=== PATIENT | male | born 1990 | race Caucasian/White ===

== ENCOUNTER 2021-04-06 19:35 | Emergency (ER) | payer OTHER, SELFPAY ==
[2021-04-06 19:47] VITALS: BP 109/63; PULSE 99; RESP 22; TEMP 38.4; O2SAT 96
[2021-04-06 19:52] VITALS: BP 109/63; PULSE 99; RESP 22; TEMP 38.4; O2SAT 96
[2021-04-06 21:02] VITALS: PULSE 95; RESP 24; O2SAT 100
--- NOTE | 2021-04-06 21:02 | PC.NURSE ---
Pt up to intake states he cannot breathe and is hyperventilating. Vitals checked and stable - 100% on room air. Pulse 95.
[2021-04-06 21:36] VITALS: BP 110/70; PULSE 80; RESP 20; O2SAT 99
[2021-04-06 21:46] LABS: Hematocrit 46.4 % (42.0-52.0); Mean Corpuscular HGB Conc 34.5 g/dl (32-36); Mean Corpuscular Hemoglobin 29.5 pg (26-34); Mean Corpuscular Volume 85.6 fl (80-100); Mean Platelet Volume 10.8 fl (7.4-10.4); Platelet Count Result 194 k/mm3 (150-375); Red Blood Count 5.42 M/mm3 (4.6-6.20); Red Cell Distribution Width 12.6 % (11.5-14.5); White Blood Count 9.3 K/mm3 (4.5-10.0)
--- NOTE | 2021-04-06 21:55 | ED.NAVMDI ---
HPI - Nausea/Vomiting/Diarrhea General Chief complaint: Nausea/Vomiting/Diarrhea Stated complaint: N/V/D Time Seen by Provider: 04/06/21 21:41 Source: patient History of Present Illness HPI Narrative: Patient comes with nausea vomiting diarrhea and diffuse body aches. Patient for symptoms started this afternoon and got progressively worse she has been unable to eat or drink anything he was concerned so he came to the ER for evaluation. Reports he had poisoning a few years ago and feels he is having a similar event today. Denies any blood or bile or melena in his stool or emesis. Denies any known sick contacts denies any cough chest pain or shortness of breath Related Data Allergies Allergy/AdvReac Type Severity Reaction Status Date / Time No Known Allergies Allergy Verified 04/06/21 19:51 Review of Systems Review of Systems: CONSTITUTIONAL: Denies fever, chills, or sweats. EYES: Denies visual changes, redness, or discharge. ENT: Denies rhinorrhea, congestion, sore throat, or otalgia. CARDIOVASCULAR: Denies chest pain, palpitations, or edema. RESPIRATORY: Denies cough or dyspnea. GASTROINTESTINAL: Abdominal cramping, nausea, vomiting, diarrhea GENITOURINARY: Denies dysuria or hematuria. SKIN: Denies rash or itching. MUSCULOSKELETAL: Denies back pain, joint pain, or myalgia. NEUROLOGIC: Denies headache, numbness, dizziness, or weakness. PSYCHIATRIC: Denies anxiety or depression. All systems reviewed & are unremarkable except as noted in HPI and below PMFSH Social History Social History Smoking status: Never smoker Alcohol intake: never Exam Narrative: GENERAL: Well-appearing, well-nourished, and in no acute distress. HEAD: Normocephalic, atraumatic. EYES: PERRLA and EOMI. ENT: Nares clear, no rhinorrhea or epistaxis. Mucous membranes moist. NECK: Supple. No masses. No JVD ABDOMEN: Mild diffuse abdominal pain with deep palpation soft, nondistended, normal active bowel sounds. EXTREMITIES: Normal range of motion. No edema. SKIN: Warm, dry, no rash. NEURO: No focal deficits. Alert and oriented x3. PSYCH: Normal mood and affect. Course Reevaluation(s) Reevaluation #1: Patient reports feeling much improved results reviewed with patient. Patient comfortable outpatient supportive therapies Date: 04/06/21 Time: 22:50 Vital Signs Vital signs: Vital Signs Temperature 38.4 C H 04/06/21 19:47 Pulse Rate 99 04/06/21 19:47 Respiratory Rate 22 H 04/06/21 19:47 Blood Pressure 109/63 04/06/21 19:47 Pulse Oximetry 96 04/06/21 19:47 Temperature 38.4 C H 04/06/21 19:52 Pulse Rate 80 04/06/21 21:36 Respiratory Rate 20 04/06/21 21:36 Blood Pressure 110/70 04/06/21 21:36 Pulse Oximetry 99 04/06/21 21:36 MDM - Nausea/Vomiting/Diarrhea MDM Narrative Medical decision making narrative: H&P as above, vss, pt looks clinically well, exam with nonacute abdomen, labs clinically unremarkable, additional labs/img considered. symptomatic relief available as needed, patient treated with fluids and Zofran on reevaluation pt continues to looks clinically well reporting large improvement in symptoms. Suspect foodborne illness versus viral gastroenteritis, dns severe sepsis, severe dehydration, appendicitis, perforation. plan to tx/monitor as op w/ pcm f/u findings/plan discussed with pt, pt agree/comfortable with plan, return precautions given Lab Data Result diagrams: 04/06/21 21:34 04/06/21 21:34 Labs: Lab Results 04/06/21 04/06/21 04/06/21 Range/Units 21:34 21:34 21:34 WBC 9.3 (4.5-10.0) K/mm3 RBC 5.42 (4.6-6.20) M/mm3 Hgb 16.0 (14.0-18.0) g/dL Hct 46.4 (42.0-52.0) % MCV 85.6 (80-100) fl MCH 29.5 (26-34) pg MCHC 34.5 (32-36) g/dl RDW 12.6 (11.5-14.5) % Plt Count 194 (150-375) k/mm3 MPV 10.8 H (7.4-10.4) fl Immature Gran % (Auto) Not Reportable Neut % (Auto) N
[2021-04-06 22:01] LABS: Alanine Aminotransferase 22 U/L (4-50); Albumin Level 5.1 g/dL (3.5-5.1); Alkaline Phosphatase 72 U/L (38-126); Anion Gap 10 mmol/L (8-16); Aspartate Amino Transferase 31 U/L (17-59); Bilirubin,Total 1.2 mg/dL (0.2-1.3); Blood Urea Nitrogen 22 mg/dL (9-20); Calcium 10.2 mg/dL (8.4-10.2); Carbon Dioxide 23 mmol/L (22-30); Chloride 106 mmol/L (98-107); Estimated CRCL calculation 97 ml/min; Estimated Glomerular Filt Rate > 60; Glucose 131 mg/dL (65-110); Potassium 4.4 mmol/L (3.4-5.0); Sodium 139 mmol/L (137-145)
[2021-04-06 22:11] LABS: Band Neutrophils Percent 16 % (0-6); Lymphocytes Absolute Manual 0.37 K/mm3 (1.1-4.5); Monocytes Absolute Manual 0.55 K/mm3 (0.1-0.90); Monocytes Percent Manual 6 % (3-9); Neutrophils Absolute Manual 8.37 K/mm3 (1.3-6.7); Neutrophils Percent Manual 74 % (46-73); Platelet Estimate Adequate (Adequate); Total Cells Counted 100
[2021-04-06] MEDS: ONDANSETRON INJ 4 MG/2 ML VIAL IV PUSH (22:15)
[2021-04-06] MEDS: SODIUM CHLORIDE 0.9% IV 1,000 ML 999 ML IV CONT (22:15)
--- NOTE | 2021-04-06 22:25 | PC.NURSE ---
Called lab and spoke to Pooja to add on Lip
[2021-04-06 22:35] LABS: Lipase 65 U/L (23-300)
--- NOTE | 2021-04-06 23:05 | PC.NURSE ---
patient screaming in room that she is in pain and cursing at this nurse. patient refuses ativan stating that she wants pain medication to knock her out. patient accusing staff of not being willing to help her. Dr De La Paz made aware of patients continued c/o pain. no new orders
== END 2021-04-06 23:09 | disposition home or self-care (01) ==
PROVIDERS: Emergency Provider Emergency Medicine; PCP Family Medicine
DX: R11.2 Nausea with vomiting, unspecified (principal); R10.9 Unspecified abdominal pain; R19.7 Diarrhea, unspecified
CPT/HCPCS: 36415; 80053; 83690; 85025; 96361; 96374; 96375; 99284; J0131; J2405; J7030